=== PATIENT | male | born 1955 ===

== ENCOUNTER → 2018-01-01 | Outpatient (CLI) | payer SELFPAY ==
--- NOTE | 2018-01-01 16:12 | CT ---
HISTORY: Screening Study: Cardiac calcium score Comparison: None Technique: Multiple axial CT images of the chest were reviewed without contrast utilizing noncontrast prospective gating. AEC was utilized. Findings: Coronary calcium score is 36 which places the patient between the 25th and 50th percentile for age an d sex with definite least mild atherosclerotic plaque identified with mild or minimal coronary narrow ings likely. Surrounding soft tissues are unremarkable. Thoracic spondylosis is noted. IMPRESSION: Mild atherosclerotic plaque. Reported By:
== END ==
LOC: RAD 13:21
PROVIDERS: ATTEND Nurse Practitioner Family
DX: Z13.6 Encounter for screening for cardiovascular disorders (principal)